=== PATIENT | male | born 1970 | race Caucasian/White ===

== ENCOUNTER 2018-06-23 08:27 | Emergency (ER) | payer OTHER ==
[2018-06-23] MEDS ORDERED: ASPIRIN 81 MG CHEWABLE TABLET ONE (08:54)
[2018-06-23 09:35] LABS: Absolute Lymphocytes (CBC) 1.7 K/uL (0.7-4.9); Absolute Monocytes 0.7 K/uL (0.1-1.3); Absolute Neutrophil 5.8 K/uL (1.8-8.0); Basophils % 0.7 % (0-1.3); Eosinophils % 0.4 % (0-4.4); Hematocrit 47.6 % (39.6-49.0); Lymphocytes % 20.4 % (15.3-44.8); Monocytes % 8.8 % (3.3-12.3); RBC Red Blood Cell Count 5.05 M/uL (4.33-5.43)
--- NOTE | 2018-06-23 09:43 | RAD REPORT ---
[facility] [place] Single [facility]/23/2018 8:57 am CLINICAL HISTORY: Chest pain COMPARISON: June 09, 2018 FINDINGS: The left lateral lung base is not included in the field of view and is not evaluated. Visualized lungs appear clear of acute infiltrate. The heart is normal size
[2018-06-23 09:50] LABS: Protime INR 0.95
[2018-06-23 09:59] LABS: ALT/SGPT 15 U/L (12-78); AST/SGOT 11 U/L (15-37); Albumin 3.9 g/dL (3.4-5.0); Alkaline Phosphatase 70 U/L (45-117); BUN Blood Urea Nitrogen 7 mg/dL (7-18); Bicarbonate 32 mmol/L (21-32); Bilirubin Direct 0.2 mg/dL (0-0.2); Bilirubin Total 0.4 mg/dL (0.2-1.0); Glucose Level 91 mg/dL (74-106); NT PRO-BNP 41 pg/mL (<125); Potassium 3.9 mmol/L (3.5-5.1); Sodium Level 143 mmol/L (136-145); Troponin (Emerg Dept Use Only) < 0.02 ng/mL (0.0-0.045)
--- NOTE | 2018-06-23 10:43 | RAD REPORT ---
EXAM DESCRIPTION: CT - Chest For Pe Angio - 06/23/2018 10:32 am CLINICAL HISTORY: Chest pain. Chest pain;Dyspnea COMPARISON: No comparisons TECHNIQUE: CT angiogram of the pulmonary arteries was performed with MIP. All CT scans are performed using dose optimization technique as appropriate and may include automated exposure control or mA/KV adjustment according to patient size. FINDINGS: No evidence of pulmonary thromboembolism. No acute aortic finding demonstrated. The lungs are clear. No significant pericardial or pleural fluid. No concerning bony finding. IMPRESSION: No evidence of pulmonary thromboembolism. No acute lung findings.
--- NOTE | 2018-06-23 11:04 | ER ---
Nurse's Notes [facility] Name: Hair Sanchez Age: 47 yrs Sex: Male : 1970 Arrival Date: 06/23/2018 Time: 08:28 Bed 4 Private MD: Diagnosis: Other chest pain-Atypical Presentation: 06/23 08:37 Presenting complaint: Left sided chest pain x 2 weeks, Left arm tingling and headache x hb 2 days. Transition of care: patient was not received from another setting of care. Onset of symptoms is unknown. Risk Assessment: Do you want to hurt yourself or someone else? Patient reports no desire to harm self or others. Care prior to arrival: None. 08:37 Method Of Arrival: Ambulatory hb 08:37 Acuity: MUNA 3 hb 09:48 Initial Sepsis Screen: Does the patient meet any 2 criteria? No. Patient's initial ph sepsis screen is negative. Does the patient have a suspected source of infection? No. Patient's initial sepsis screen is negative. Historical: - Allergies: 08:37 No Known Allergies; hb - Home Meds: 08:37 Prozac Oral [Active]; hb - PMHx: 08:37 None; hb - PSHx: 08:37 None; hb - Immunization history:: Adult Immunizations up to date. - Social history:: Smoking status: Patient/guardian denies using tobacco. - Ebola Screening: : No symptoms or risks identified at this time. Screenin:52 Abuse screen: Denies threats or abuse. Denies injuries from another. Nutritional ph screening: No deficits noted. Tuberculosis screening: No symptoms or risk factors identified. 09:48 Fall Risk None identified. ph Assessment: 08:45 General: Appears in no apparent distress. comfortable, slender, well groomed, Behavior ph is calm, cooperative, appropriate for age. Pain: Complains of pain in anterior aspect of left upper chest Pain radiates to left arm Quality of pain is described as pressure, stabbing, Pain began approx "2 weeks ago". Neuro: Level of Consciousness is awake, alert, obeys commands, Oriented to person, place, time, situation. Cardiovascular: Reports chest pain, Denies nausea, palpitations, shortness of breath, Capillary refill < 3 seconds in bilateral fingers Patient's skin is warm and dry. Rhythm is sinus bradycardia. Respiratory: Airway is patent Respiratory effort is even, unlabored, Respiratory pattern is regular, symmetrical. Derm: Skin is intact, is healthy with good turgor, Skin is pink, warm \\T\\ dry. Musculoskeletal: Circulation, motion, and sensation intact. Range of motion: intact in all extremities. 09:47 Reassessment: Patient appears in no apparent distress at this time. Patient and/or ph family updated on plan of care and expected duration. Pain level reassessed. Patient is alert, oriented x 3, equal unlabored respirations, skin warm/dry/pink. Pt resting quietly, awaiting lab and radiology results, VSS. 10:49 Reassessment: Patient appears in no apparent distress at this time. Patient and/or ph family updated on plan of care and expected duration. Pain level reassessed. Patient is alert, oriented x 3, equal unlabored respirations, skin warm/dry/pink. Pt resting quietly, VSS. 11:23 Reassessment: Patient appears in no apparent distress at this time. Patient and/or ph family updated on plan of care and expected duration. Pain level reassessed. Patient is alert, oriented x 3, equal unlabored respirations, skin warm/dry/pink. Pt instructed to follow up w/ bilingual research interviewer and d/c home. Vital Signs: 08:36 BP 128 / 87; Pulse 65; Resp 16; Temp 98.2; Pulse Ox 99% on R/A; Pain 8/10; hb 09:45 BP 129 / 89; Pulse 63; Resp 20; Pulse Ox 99% ; ph 10:50 BP 123 / 79; Pulse 50; Resp 16; Pulse Ox 99% on R/A; ph 11:24 BP 120 / 85; Pulse 54; Resp 16; Temp 97.9; Pulse Ox 99% on R/A; ph ED Course: 08:28 Patient arrived in ED. as 08:34 Noah Ledesma MD is Attending Physician. mendoza 08:36 Arm band placed on. hb 08:38 Triage completed. hb 08:38 Faheem Olivares PA is PHCP. jr8 08:41 Latia Guallpa, MIA is Primary Nurse. ph 08:56 X-ray completed. Portable x-ray completed in exam room. Patient tolerated procedure ls3 well. 08:57 XRAY Chest (1 view) In Process Unspecified. EDMS 09:20 No provider procedures requiring assistance completed. Initial lab(s) drawn, by ct, ph sent to lab. Inserted saline lock: 22 gauge in right antecubital area, using aseptic technique. Blood collected. Patient maintains SpO2 saturation greater than 95% on room air. 09:48 Patient has correct armband on for positive identification. Placed in gown. Bed in low ph position. Call light in reach. Side rails up X2. director prospect on. Pulse ox on. NIBP on. Door closed. Warm blanket given. 09:57 EKG done, by neurology technologist. reviewed by Faheem DODD. dt2 10:32 CT Chest For PE Angio In Process Unspecified. EDMS 10:32 CT completed. Patient tolerated procedure well. Patient moved to CT via wheelchair. Patient moved back from CT. 11:02 Lance Triana MD is Referral Physician. jr8 11:24 IV discontinued, intact, bleeding controlled, No redness/swelling at site. Pressure ph dressing applied. Administered Medications: 09:12 Drug: Aspirin Chewable Tablet 324 mg Route: PO; ph 09:33 Follow up: Response: No adverse reaction ph Outcome: 11:03 Discharge ordered by . jr8 11:23 Discharged to home ambulatory. ph 11:23 Condition: good 11:23 Discharge instructions given to patient, Instructed on discharge instructions, follow up and referral plans. Demonstrated understanding of instructions, follow-up care. 11:24 Patient left the ED. ph Signatures: Dispatcher [employer] EDID Noah Ledesma MD MD cha Jones, Susan sj Martinez, Amelia as Roszak, Josh, PA PA jr8 Latia Guallpa RN RN Anastasia Bennett RN RN Stefany Merrill dt2 Sergio Chaves ls3 Corrections: (The following items were deleted from the chart) 09:02 08:52 Fall Risk Fall in past 12 months (25 points). Secondary diagnosis (15 points) ph impaired mobility, No IV (0 pts). Ambulatory Aid- Crutches/Cane/Walker (15 pts). Gait- Impaired (20 pts.). Mental Status- Oriented to own ability (0 pts). Total Pepper Fall Scale indicates High Risk Score (45 or more points). Fall prevention measures have been instituted. Side Rails Up X 2 Placed Close to Nursing Station Frequent Obs/Assessments Occuring Family Present and informed to notify staff if the need to leave the bedside As available patient and family educated on Fall Prevention Program and Strategies. ph
--- NOTE | 2018-06-23 11:04 | EDPHYS ---
Physician Documentation [facility] Name: Hair Sanchez Age: 47 yrs Sex: Male : 1970 Arrival Date: 06/23/2018 Time: 08:28 Bed 4 Private MD: ED Physician Noah Ledesma HPI: 06/23 09:32 This 47 yrs old Male presents to ER via Ambulatory with complaints of Chest jr8 Pain, Numbness Of Arm. 09:32 The patient or guardian reports chest pain that is located primarily in the substernal jr8 area. Onset: gradually, 2 week(s) ago, and became worse and became persistent. 09:34 The pain radiates to the left arm. Associated signs and symptoms: Pertinent positives: jr8 headache. The chest pain is described as aching, a pressure, stabbing. Modifying factors: The symptoms are alleviated by nothing. the symptoms are aggravated by nothing. Severity of pain: At its worst the pain was moderate in the emergency department the pain is unchanged. The patient has not experienced similar symptoms in the past. The patient has not recently seen a physician. Stated that he has had chest pressure for the past couple of weeks with intermittent sharp chest pain. Pain radiates to left arm. Stated that every time he gets chest pain will have headache . Historical: - Allergies: 08:37 No Known Allergies; hb - Home Meds: 08:37 Prozac Oral [Active]; hb - PMHx: 08:37 None; hb - PSHx: 08:37 None; hb - Immunization history:: Adult Immunizations up to date. - Social history:: Smoking status: Patient/guardian denies using tobacco. - Ebola Screening: : No symptoms or risks identified at this time. ROS: 09:34 Eyes: Negative for injury, pain, redness, and discharge, ENT: Negative for injury, jr8 pain, and discharge, Neck: Negative for injury, pain, and swelling, Respiratory: Negative for shortness of breath, cough, wheezing, and pleuritic chest pain, Abdomen/GI: Negative for abdominal pain, nausea, vomiting, diarrhea, and constipation, Back: Negative for injury and pain, MS/Extremity: Negative for injury and deformity, Skin: Negative for injury, rash, and discoloration. 09:34 Cardiovascular: Positive for chest pain, Negative for edema, orthopnea, palpitations, paroxysmal nocturnal dyspnea. 09:34 Neuro: Positive for headache, tingling, of the left arm. Exam: 09:34 Eyes: Pupils equal round and reactive to light, extra-ocular motions intact. Lids and jr8 lashes normal. Conjunctiva and sclera are non-icteric and not injected. Cornea within normal limits. Periorbital areas with no swelling, redness, or edema. ENT: Nares patent. No nasal discharge, no septal abnormalities noted. Tympanic membranes are normal and external auditory canals are clear. Oropharynx with no redness, swelling, or masses, exudates, or evidence of obstruction, uvula midline. Mucous membranes moist. Neck: Trachea midline, no thyromegaly or masses palpated, and no cervical lymphadenopathy. Supple, full range of motion without nuchal rigidity, or vertebral point tenderness. No Meningismus. Cardiovascular: Regular rate and rhythm with a normal S1 and S2. No gallops, murmurs, or rubs. Normal PMI, no JVD. No pulse deficits. Respiratory: Lungs have equal breath sounds bilaterally, clear to auscultation and percussion. No rales, rhonchi or wheezes noted. No increased work of breathing, no retractions or nasal flaring. Abdomen/GI: Soft, non-tender, with normal bowel sounds. No distension or tympany. No guarding or rebound. No evidence of tenderness throughout. Back: No spinal tenderness. No costovertebral tenderness. Full range of motion. Skin: Warm, dry with normal turgor. Normal color with no rashes, no lesions, and no evidence of cellulitis. MS/ Extremity: Pulses equal, no cyanosis. Neurovascular intact. Full, normal range of motion. Neuro: Awake and alert, GCS 15, oriented to person, place, time, and situation. Cranial nerves II-XII grossly intact. Motor strength 5/5 in all extremities. Sensory grossly intact. Cerebellar exam normal. Normal gait. Vital Signs: 08:36 BP 128 / 87; Pulse 65; Resp 16; Temp 98.2; Pulse Ox 99% on R/A; Pain 8/10; hb 09:45 BP 129 / 89; Pulse 63; Resp 20; Pulse Ox 99% ; ph 10:50 BP 123 / 79; Pulse 50; Resp 16; Pulse Ox 99% on R/A; ph 11:24 BP 120 / 85; Pulse 54; Resp 16; Temp 97.9; Pulse Ox 99% on R/A; ph MDM: 08:34 Patient medically screened. mendoza 11:00 Differential diagnosis: abnormal EKG, acute myocardial infarction, acute pericarditis, jr8 anxiety, chest wall pain, congestive heart failure costochondritis, esophagitis, gastritis, gastroesophageal reflux disease (GERD), pleurisy, pneumonia, pneumothorax, pulmonary embolus, stable angina, thoracic aortic disection, unstable angina. The patient was given aspirin in the Emergency Department. Data reviewed: vital signs, nurses notes, lab test result(s), EKG, radiologic studies, CT scan, plain films. Data interpreted: Pulse oximetry: on room air is 99 %. Interpretation: normal. Counseling: I had a detailed discussion with the patient and/or guardian regarding: the historical points, exam findings, and any diagnostic results supporting the discharge/admit diagnosis, lab results, radiology results, the need for outpatient follow up, a domain architect, to return to the emergency department if symptoms worsen or persist or if there are any questions or concerns that arise at home. 06/23 08:39 Order name: Basic Metabolic Panel [facility] 06/23 08:39 Order name: CBC with Diff 06/23 08:39 Order name: LFT's 06/23 08:39 Order name: Magnesium; Complete Time: 10:05 06/23 08:39 Order name: NT PRO-BNP; Complete Time: 10:05 06/23 08:39 Order name: PT-INR; Complete Time: 10:05 06/23 08:39 Order name: Troponin (emerg Dept Use Only); Complete Time: 10:05 06/23 08:39 Order name: XRAY Chest (1 view); Complete Time: 09:53 06/23 08:39 Order name: EKG; Complete Time: 08:40 06/23 08:39 Order name: Basic Metabolic Panel; Complete Time: 10:05 EDMS 06/23 08:39 Order name: CBC with Automated Diff; Complete Time: 09:53 EDMS 06/23 08:39 Order name: Liver (Hepatic) Function; Complete Time: 10:05 EDMS 06/23 10:06 Order name: CT Chest For PE Angio; Complete Time: 10:59 jr8 18 08:39 Order name: Cardiac monitoring; Complete Time: 09:33 06/23 08:39 Order name: EKG - Nurse/Tech; Complete Time: 06/23 08:39 Order name: IV Saline Lock; Complete Time: 06/23 08:39 Order name: Labs collected and sent; Complete Time: 06/23 08:39 Order name: O2 Per Protocol; Complete Time: 06/23 08:39 Order name: O2 Sat Monitoring; Complete Time: Administered Medications: 09:12 Drug: Aspirin Chewable Tablet 324 mg Route: PO; ph 09:33 Follow up: Response: No adverse reaction ph Disposition: 13:48 Co-signature as Attending Physician, Noah Ledesma MD I agree with the assessment and mendoza plan of care. Disposition: 06/23/18 11:03 Discharged to Home. Impression: Other chest pain - Atypical. - Condition is Stable. - Discharge Instructions: Nonspecific Chest Pain, Chest Wall Pain, Electrocardiography. - Work release form, Medication Reconciliation Form, Thank You Letter, Antibiotic Education, Prescription Opioid Use form. - Follow up: Lance Triana MD; When: 2 - 3 days; Reason: Recheck today's complaints, Continuance of care, Re-evaluation by your physician. - Problem is new. - Symptoms have improved. Signatures: Dispatcher [employer] EDNH Noah Ledesma MD MD cha Roszak, Josh, PA PA jr8 Latia Guallpa RN RN Anastasia Bennett RN RN Corrections: (The following items were deleted from the chart) 09:35 09:32 Onset: gradually, jr8 jr8 11:24 11:03 06/23/2018 11:03 Discharged to Home. Impression: Other chest pain - Atypical. ph Condition is Stable. Forms are Medication Reconciliation Form, Thank You Letter, Antibiotic Education, Prescription Opioid Use. Follow up: Lance Triana; When: 2 - 3 days; Reason: Recheck today's complaints, Continuance of care, Re-evaluation by your physician. Problem is new. Symptoms have improved. jr8
--- NOTE | 2018-06-23 12:15 | EKG ---
Test Date: 2018-06-23 Test Time: 09:30:52 Replenishment Specialist: AMEENA, MEASUREMENT RESULTS: Intervals: Rate: 52 [place]: 134 QRSD: 96 QT: 392 QTc: 364 Jerome: P: 0 [place]: 134 QRS: 83 T: 63 INTERPRETIVE STATEMENTS: Sinus bradycardia Otherwise normal ECG Compared to ECG 08/31/2004 10:55:00 Early repolarization no longer present Electronically Signed On 06-23-18 12:15:11 CDT by Lance Triana
== END 2018-06-23 11:24 | disposition home or self-care (01) ==
LOC: ER 08:27
DX: R07.89 Other chest pain (principal)
CPT/HCPCS: 36415; 71045; 71275; 80048; 80076; 83735; 83880; 84484; 85025; 85610; 93005; 99285; Q9967